=== PATIENT | male | born 1995 | race American Indian/Alaskan Native ===

== ENCOUNTER 2021-07-05 14:25 | Emergency (ER) | payer SELFPAY ==
[2021-07-05 14:32] VITALS: BP 146/80
[2021-07-05] MEDS ORDERED: TETANUS,DIPH,PERTUSS(ACELL) VACCINE 0.5 ML SYRINGE IM ONE ×2 (15:02→18:15)
[2021-07-05] MEDS ORDERED: KETOROLAC 10 MG TAB PO ONE (15:02)
--- NOTE | 2021-07-05 15:39 | XRay Report ---
RIGHT FOREARM 2 VIEW(S) INDICATION / CLINICAL INFORMATION: lac, r/o fb COMPARISON: None available. FINDINGS: BONES / JOINT(S): No acute fracture or dislocation. SOFT TISSUES: Soft tissue laceration of the distal forearm. No radiopaque foreign body. ADDITIONAL FINDINGS: None. Signer Name: Jeff Vallejo MD Signed: 07/05/2021 3:35 PM Workstation Name: [id number]
--- NOTE | 2021-07-05 16:43 | Emergency Department Report ---
- General Chief Complaint: Wound/Laceration Stated Complaint: RT ARM LACERATION Time Seen by Provider: 07/05/21 15:00 Source: patient, EMS Mode of arrival: Ambulatory Limitations: No Limitations - History of Present Illness Initial Comments: 25-year-old black male with no past medical history presents to the emergency department for evaluation of right forearm laceration. He states that he tripped while at home fell, and his arm went through the glass window. He denies loss of consciousness and presents with laceration to right forearm along with several small abrasions to area. Tdap is not up-to-date. -: Sudden, This afternoon Extremity Location: Right: Forearm Place: home Patient Tetanus UTD: No Context: accidental Associated Symptoms: none - Related Data Previous Rx's Medication Instructions Recorded Last Taken Type Mupirocin [Bactroban 2%] 1 applic TP TID #1 tube 07/05/21 Unknown Rx Allergies Allergy/AdvReac Type Severity Reaction Status Date / Time No Known Allergies Allergy Unverified 07/05/21 14:32 ED Review of Systems ROS: Stated complaint: RT ARM LACERATION Other details as noted in HPI Comment: All other systems reviewed and negative Constitutional: denies: chills, fever Respiratory: denies: shortness of breath Cardiovascular: denies: chest pain Gastrointestinal: denies: abdominal pain, nausea, vomiting Neurological: denies: headache, weakness Hematological/Lymphatic: denies: easy bleeding ED Past Medical Hx - Medications Home Medications: Home Medications Medication Instructions Recorded Confirmed Last Taken Type Mupirocin [Bactroban 2%] 1 applic TP TID #1 tube 07/05/21 Unknown Rx ED Physical Exam - General Limitations: No Limitations General appearance: alert, in no apparent distress - Head Head exam: Present: atraumatic, normocephalic - Eye Eye exam: Present: normal appearance. Absent: conjunctival injection - Neck Neck exam: Present: normal inspection - Respiratory Respiratory exam: Absent: respiratory distress - Cardiovascular Cardiovascular Exam: Present: regular rate - GI/Abdominal GI/Abdominal exam: Absent: distended - Expanded Upper Extremity Exam Right Forearm Wrist exam: Present: tenderness, swelling, abrasion, laceration. Absent: normal inspection, erythema, tenderness over anatomical snuff box Neuro motor exam: Present: thumb opposition intact, thumb IP flexion intact, thumb adduction intact, fingers 2-5 abduction intact Vascular: Present: normal capillary refill, radial pulse. Absent: vascular compromise, Pallo, pulse deficit radial art, pulse deficit brachial art - Back Exam Back exam: Present: normal inspection - Neurological Exam Neurological exam: Present: alert, oriented X3 - Psychiatric Psychiatric exam: Present: normal affect, normal mood - Skin Skin exam: Present: warm, dry, normal color ED Course Vital Signs 07/05/21 14:29 Temperature 98.5 F Pulse Rate 70 Respiratory 16 Rate Blood Pressure 146/80 [Left] O2 Sat by Pulse 98 Oximetry - Laceration /Wound Repair Right Lower Arm Wound Location: upper extremity (Right forearm) Wound Length (cm): 4 Wound's Depth, Shape: linear Wound Explored: no foreign body removed Irrigated w/ Saline (ccs): 60 Betadine Prep?: No Anesthesia: 1% Lidocaine Volume Anesthetic (ccs): 8 Wound Repaired With: sutures Suture Size/Type: 4:0, proline Number of Sutures: 8 Layer Closure?: Yes Deep Layer Suture Size/Type: 3:0 Number Deep Layer Sutures: 4 Sterile Dressing Applied?: Yes Progress: Wound irrigated then anesthetized with 1% lidocaine then sutures placed. No bleeding noted, and patient tolerated well. ED Medical Decision Making - Radiology Data Radiology results: report reviewed, image reviewed Right forearm x-ray: FINDINGS: BONES / JOINT(S): No acute fracture or dislocation. SOFT TISSUES: Soft tissue laceration of the distal forearm. No radiopaque foreign body. ADDITIONAL FINDINGS: None. - Medical Decision Making 25-year-old black male with no past medical history presents to the emergency department for evaluation of right forearm laceration. He states that he tripped while at home fell, and his arm went through the glass window. He denies loss of consciousness and presents with laceration to right forearm along with several small abrasions to area. Tdap is not up-to-date. Right forearm x-ray without any foreign bodies noted. Right forearm laceration irrigated and sutured per suture note. Patient tolerated well. Tdap updated. Patient will be discharged home with Bactroban to place to abrasions on forearm and hand. He is advised to monitor for signs of infection return to emergency department immediately if any noted. He is advised to follow-up with primary care provider or to the ER in 7 to 10 days for suture removal. He verbalized understanding of and agreement with plan of care. Critical care attestation.: If time is entered above; I have spent that time in minutes in the direct care of this critically ill patient, excluding procedure time. ED Disposition Clinical Impression: Arm laceration Qualifiers: Encounter type: initial encounter Laterality: right Qualified Code(s): S41.111A - Laceration without foreign body of right upper arm, initial encounter Arm abrasion Qualifiers: Encounter type: initial encounter Laterality: right Qualified Code(s): S40.811A - Abrasion of right upper arm, initial encounter Disposition: HOME / SELF CARE / HOMELESS Is pt being admited?: No Does the pt Need Aspirin: No Condition: Stable Instructions: Laceration Care, Adult, [id number], Abrasion, [id number], Sutured Wound Care, [id number] Additional Instructions: Take medications as prescribed. Follow-up with primary care provider or return to the emergency department in 7 to 10 days to have sutures removed. Monitor for signs of infection, and if any noted return to the emergency department immediately. Prescriptions: Mupirocin [Bactroban 2%] 1 applic TP TID #1 tube Referrals: NIKOLAI LU MD [Referring] - 3-5 Days Time of Disposition: 16:43
== END 2021-07-05 16:43 | disposition home or self-care (01) ==
LOC: ED 14:25
DX: S51.811A Laceration without foreign body of right forearm, initial encounter (principal); W18.39XA Other fall on same level, initial encounter; Y93.89 Activity, other specified; Y92.89 Other specified places as the place of occurrence of the external cause; Y99.8 Other external cause status
CPT/HCPCS: 90471; 90715; 99283